=== PATIENT | female | born 1960 | race American Indian/Alaskan Native ===

== ENCOUNTER 2016-09-21 08:36 | Outpatient (CLI) | payer BC, MEDICARE ==
[2016-09-21 09:05] LABS: Albumin 3.6 g/dL (3.9-5); Anion Gap 15 mmol/L; BUN/Creatinine Ratio 14.54; Blood Urea Nitrogen 16 mg/dL (7-17); Calcium 8.9 mg/dL (8.4-10.2); Carbon Dioxide 27 mmol/L (22-30); Chloride 105.3 mmol/L (98-107); Glucose 82 mg/dL (65-100); Sodium 143 mmol/L (137-145)
[2016-09-21 09:11] LABS: Hemoglobin 13.2 gm/dl (10.1-14.3)
== END 2016-09-21 08:37 | disposition home or self-care (01) ==
LOC: LAB 08:36
PROVIDERS: ATTEND Internal Medicine Nephrology
DX: I12.9 Hypertensive chronic kidney disease with stage 1 through stage 4 chronic kidney disease, or unspecified chronic kidney disease (principal); N18.9 Chronic kidney disease, unspecified; E11.22 Type 2 diabetes mellitus with diabetic chronic kidney disease; N17.9 Acute kidney failure, unspecified; R80.9 Proteinuria, unspecified; E78.5 Hyperlipidemia, unspecified; J45.909 Unspecified asthma, uncomplicated; F32.9 Major depressive disorder, single episode, unspecified; Z79.899 Other long term (current) drug therapy
CPT/HCPCS: 36415; 80048; 82040; 83970; 84100; 85014; 85018